=== PATIENT | male | born 1940 | race Caucasian/White ===

== ENCOUNTER 2022-04-09 19:26 | Inpatient (IN) ==
[2022-04-09] MEDS ORDERED: MUPIROCIN 2% OINT 22 GM TUBE TOP ONE (19:46)
[2022-04-09 20:30] LABS: Albumin 3.3 G/DL (3.4-5.0); Bilirubin,Total 0.4 MG/DL (0.20-1.00); Calcium 8.6 MG/DL (8.5-10.1); Osmolality,Calculated 285.3 MOS/KG (273-304); Potassium 4.4 MMOL/L (3.5-5.1); Total Protein 6.5 G/DL (6.4-8.2)
[2022-04-09 20:44] LABS: Basophils # 0.1 10*3/uL (0.0-0.2); Basophils % 0.6 % (0.0-0.8); Eosinophils # 0.4 10*3/uL (0.0-0.87); Eosinophils % 5.7 % (0.00-10.9); Hematocrit 30.4 VOL% (42.0-52.0); Hemoglobin 9.5 GM/DL (14.0-18.0); Immature Granulocytes % 0.3 %; Immature Granulocytes Absolute 0.02 #; Lymphocytes # 1.6 10*3/uL (1.4-4.0); Mean Corpuscular HGB Conc 31.3 GM/DL (32-36); Mean Corpuscular Volume 98.1 FL (87-102); Mean Platelet Volume 11.8 FL (9.6-12.0); Monocytes # 0.4 10*3/uL (0.11-0.8); Monocytes % 5.3 % (1.7-12.7); Neutrophils % 68.1 % (38.7-73.9); Platelet Count 169 T/CUMM (130-400); Red Cell Distribution Width 13.6 % (9.3-17.3); White Blood Count 7.8 T/CUMM (4-12)
[2022-04-09 20:50] LABS: INR 1.1; PT Patient Result 11.9 SECS (10.1-12.1)
[2022-04-09] MEDS ORDERED: CLINDAMYCIN INJ 900 MG/50 ML PREMIX IV ONE (20:52)
[2022-04-09] MEDS ORDERED: fentaNYL 100 MCG/2 ML VIAL ONE (20:53)
[2022-04-09] MEDS ORDERED: ONDANSETRON 4 MG/2 ML VIAL ONE (20:53)
[2022-04-09] MEDS ORDERED: SEVOFLURANE 1 UNIT/15 MINUTE INH ONE ×2 (20:53→21:56)
[2022-04-09] MEDS ORDERED: LIDOCAINE 2% 5 ML VIAL ONE (20:53)
[2022-04-09] MEDS ORDERED: ETOMIDATE 40 MG/20 ML VIAL IV ONE (20:53)
[2022-04-09] MEDS ORDERED: diphenhydrAMINE CAP 25 MG CAPSULE PO PRN (20:56)
[2022-04-09] MEDS ORDERED: ACETAMINOPHEN 325 MG TABLET PO PRN (20:56)
[2022-04-09] MEDS ORDERED: ONDANSETRON 4 MG/2 ML VIAL IV PRN (20:56)
[2022-04-09] MEDS ORDERED: MAGNESIUM HYDROXIDE SUSP 30 ML UDCUP PO PRN ×2 (20:56→21:06)
[2022-04-09] MEDS ORDERED: LACTATED RINGERS 1,000 ML IV SCH (21:00)
[2022-04-09] MEDS ORDERED: MORPHINE 2 MG/1 ML SYRINGE IV PRN (21:08)
[2022-04-09] MEDS ORDERED: GLUCAGON 1 MG VIAL IM PRN (21:36)
[2022-04-09] MEDS ORDERED: ALUMINUM/MAGNES/SIMETH MAX STR 30 ML UDCUP PO PRN (21:36)
[2022-04-09] MEDS ORDERED: ROCURONIUM 50 MG/5 ML VIAL IV ONE (21:40)
[2022-04-09] MEDS ORDERED: PHENYLEPHRINE 1 MG/10 ML SYRINGE IV ONE ×2 (21:40→21:50)
[2022-04-09] MEDS ORDERED: GLYCOPYRROLATE 0.4 MG/2 ML VIAL ONE ×2 (21:40→21:55)
[2022-04-09] MEDS ORDERED: CALCIUM CHLORIDE 1,000 MG/10 ML VIAL IV ONE (21:52)
[2022-04-09] MEDS ORDERED: DEXTROSE 10% 250 ML BAG IV PRN (21:54)
[2022-04-09] MEDS: MORPHINE 2 MG/1 ML SYRINGE IV PRN (23:40)
[2022-04-10] MEDS: GENTAMICIN INJ 80 MG/50 ML PREMIX IV SCH ×2 (02:19→09:02)
[2022-04-10 04:53] LABS: Basophils % 0.6 % (0.0-0.8); Eosinophils # 0.2 10*3/uL (0.0-0.87); Eosinophils % 3.6 % (0.00-10.9); Hematocrit 26.7 VOL% (42.0-52.0); Hemoglobin 8.3 GM/DL (14.0-18.0); Immature Granulocytes % 0.5 %; Immature Granulocytes Absolute 0.03 #; Lymphocytes % 15.9 % (21.2-54.2); Mean Corpuscular HGB Conc 31.1 GM/DL (32-36); Mean Corpuscular Volume 97.4 FL (87-102); Mean Platelet Volume 11.2 FL (9.6-12.0); Monocytes # 0.5 10*3/uL (0.11-0.8); Monocytes % 7.4 % (1.7-12.7); Platelet Count 147 T/CUMM (130-400); Red Blood Count 2.74 MC/CUMM (3.8-5.5); Red Cell Distribution Width 13.2 % (9.3-17.3); White Blood Count 6.4 T/CUMM (4-12)
[2022-04-10 05:09] LABS: Osmolality,Calculated 285.3 MOS/KG (273-304); Potassium 3.7 MMOL/L (3.5-5.1)
[2022-04-10] MEDS: CLINDAMYCIN INJ 900 MG/50 ML PREMIX IV SCH ×3 (05:38→21:54)
[2022-04-10] MEDS: DOCUSATE SODIUM 100 MG CAPSULE PO SCH ×2 (08:58→21:51)
[2022-04-10] MEDS: PANTOPRAZOLE 40 MG TABLET PO SCH (08:58)
[2022-04-10] MEDS: carvediloL 25 MG TABLET PO SCH ×2 (08:58→16:30)
[2022-04-10] MEDS ORDERED: TAMSULOSIN 0.4 MG CAPSULE PO SCH (09:00)
[2022-04-10] MEDS ORDERED: NICOTINE 14 MG/24 HR PATCH TRANSDERM PRN (11:28)
[2022-04-10 11:50] LABS: Hematocrit 27.1 VOL% (42.0-52.0); Hemoglobin 8.6 GM/DL (14.0-18.0)
[2022-04-10] MEDS: LACTATED RINGERS 1,000 ML IV SCH (15:31)
[2022-04-10] MEDS ORDERED: GENTAMICIN INJ 480 MG in SODIUM CHLORIDE 0.9% 100 ML IV SCH (21:00)
[2022-04-10] MEDS: ATORVASTATIN 10 MG TABLET PO SCH (21:51)
[2022-04-10] MEDS: TAMSULOSIN 0.4 MG CAPSULE PO SCH (21:51)
[2022-04-11 04:58] LABS: Basophils % 0.4 % (0.0-0.8); Eosinophils # 0.1 10*3/uL (0.0-0.87); Eosinophils % 1.9 % (0.00-10.9); Hematocrit 22.5 VOL% (42.0-52.0); Hemoglobin 7.4 GM/DL (14.0-18.0); Immature Granulocytes % 0.4 %; Immature Granulocytes Absolute 0.03 #; Lymphocytes # 1.3 10*3/uL (1.4-4.0); Lymphocytes % 18.7 % (21.2-54.2); Mean Corpuscular HGB Conc 32.9 GM/DL (32-36); Mean Corpuscular Volume 96.2 FL (87-102); Mean Platelet Volume 11.6 FL (9.6-12.0); Monocytes # 0.7 10*3/uL (0.11-0.8); Monocytes % 10.6 % (1.7-12.7); Platelet Count 136 T/CUMM (130-400); Red Blood Count 2.34 MC/CUMM (3.8-5.5); Red Cell Distribution Width 13.5 % (9.3-17.3); White Blood Count 6.9 T/CUMM (4-12)
[2022-04-11 05:06] LABS: Calcium 8.6 MG/DL (8.5-10.1); Osmolality,Calculated 283.5 MOS/KG (273-304); Potassium 3.7 MMOL/L (3.5-5.1)
[2022-04-11] MEDS: CLINDAMYCIN INJ 900 MG/50 ML PREMIX IV SCH ×3 (05:33→23:23)
[2022-04-11] MEDS: DOCUSATE SODIUM 100 MG CAPSULE PO SCH ×2 (08:34→20:25)
[2022-04-11] MEDS: PANTOPRAZOLE 40 MG TABLET PO SCH (08:34)
[2022-04-11] MEDS: FLUoxetine 20 MG CAPSULE PO SCH (08:34)
[2022-04-11] MEDS: TAMSULOSIN 0.4 MG CAPSULE PO SCH ×2 (08:34→20:25)
[2022-04-11] MEDS: carvediloL 25 MG TABLET PO SCH ×2 (08:34→16:08)
[2022-04-11] MEDS: LACTATED RINGERS 1,000 ML IV SCH ×3 (11:10→23:24)
[2022-04-11 13:55] LABS: Hematocrit 23.5 VOL% (42.0-52.0); Hemoglobin 7.7 GM/DL (14.0-18.0)
[2022-04-11] MEDS: ATORVASTATIN 10 MG TABLET PO SCH (20:25)
[2022-04-12 05:42] LABS: Basophils % 0.2 % (0.0-0.8); Eosinophils # 0.1 10*3/uL (0.0-0.87); Eosinophils % 1.7 % (0.00-10.9); Hematocrit 20.3 VOL% (42.0-52.0); Hemoglobin 6.6 GM/DL (14.0-18.0); Immature Granulocytes % 0.5 %; Immature Granulocytes Absolute 0.03 #; Lymphocytes # 0.9 10*3/uL (1.4-4.0); Lymphocytes % 13.4 % (21.2-54.2); Mean Corpuscular HGB Conc 32.5 GM/DL (32-36); Mean Corpuscular Volume 95.8 FL (87-102); Mean Platelet Volume 11.7 FL (9.6-12.0); Monocytes # 0.6 10*3/uL (0.11-0.8); Monocytes % 9.6 % (1.7-12.7); Neutrophils % 74.6 % (38.7-73.9); Platelet Count 120 T/CUMM (130-400); Red Blood Count 2.12 MC/CUMM (3.8-5.5); Red Cell Distribution Width 13.2 % (9.3-17.3); White Blood Count 6.4 T/CUMM (4-12)
[2022-04-12 05:55] LABS: Osmolality,Calculated 283.5 MOS/KG (273-304); Potassium 3.8 MMOL/L (3.5-5.1)
[2022-04-12] MEDS: CLINDAMYCIN INJ 900 MG/50 ML PREMIX IV SCH ×3 (06:02→21:02)
[2022-04-12] MEDS ORDERED: SODIUM CHLORIDE 0.9% 1,000 ML IV PRN ×2 (06:49→09:25)
[2022-04-12] MEDS ORDERED: LACTATED RINGERS 1,000 ML IV SCH (07:00)
[2022-04-12] MEDS ORDERED: MORPHINE 10 MG/1 ML VIAL ONE (09:04)
[2022-04-12] MEDS ORDERED: ONDANSETRON 4 MG/2 ML VIAL IV PRN (09:06)
[2022-04-12] MEDS ORDERED: MORPHINE 10 MG/1 ML VIAL IV PRN (09:06)
[2022-04-12] MEDS: carvediloL 25 MG TABLET PO SCH ×2 (11:14→16:14)
[2022-04-12] MEDS: DOCUSATE SODIUM 100 MG CAPSULE PO SCH ×2 (11:15→21:02)
[2022-04-12] MEDS: FLUoxetine 20 MG CAPSULE PO SCH (11:15)
[2022-04-12] MEDS: PANTOPRAZOLE 40 MG TABLET PO SCH (11:15)
[2022-04-12] MEDS: TAMSULOSIN 0.4 MG CAPSULE PO SCH ×2 (11:15→21:02)
[2022-04-12 13:17] LABS: Hematocrit 25.5 VOL% (42.0-52.0); Hemoglobin 8.4 GM/DL (14.0-18.0)
[2022-04-12 17:29] LABS: Hematocrit 25.3 VOL% (42.0-52.0); Hemoglobin 8.6 GM/DL (14.0-18.0)
[2022-04-12] MEDS: MORPHINE 2 MG/1 ML SYRINGE IV PRN (18:02)
[2022-04-12] MEDS: rOPINIRole 1 MG TABLET PO SCH (21:02)
[2022-04-12] MEDS: ATORVASTATIN 10 MG TABLET PO SCH (21:02)
[2022-04-13] MEDS: CLINDAMYCIN INJ 900 MG/50 ML PREMIX IV SCH ×3 (05:09→21:15)
[2022-04-13 05:55] LABS: Basophils % 0.4 % (0.0-0.8); Eosinophils # 0.3 10*3/uL (0.0-0.87); Eosinophils % 4.6 % (0.00-10.9); Hematocrit 26.3 VOL% (42.0-52.0); Hemoglobin 8.5 GM/DL (14.0-18.0); Immature Granulocytes % 0.4 %; Immature Granulocytes Absolute 0.02 #; Lymphocytes % 16.7 % (21.2-54.2); Mean Corpuscular HGB Conc 32.3 GM/DL (32-36); Mean Corpuscular Volume 93.9 FL (87-102); Mean Platelet Volume 12.2 FL (9.6-12.0); Monocytes # 0.5 10*3/uL (0.11-0.8); Monocytes % 9.2 % (1.7-12.7); Neutrophils % 68.7 % (38.7-73.9); Platelet Count 138 T/CUMM (130-400); Red Cell Distribution Width 14.9 % (9.3-17.3); White Blood Count 5.7 T/CUMM (4-12)
[2022-04-13] MEDS: LACTATED RINGERS 1,000 ML IV SCH (08:06)
[2022-04-13] MEDS: FLUoxetine 20 MG CAPSULE PO SCH (09:43)
[2022-04-13] MEDS: PANTOPRAZOLE 40 MG TABLET PO SCH (09:43)
[2022-04-13] MEDS: carvediloL 25 MG TABLET PO SCH ×2 (09:43→16:18)
[2022-04-13] MEDS: TAMSULOSIN 0.4 MG CAPSULE PO SCH ×2 (09:43→21:14)
[2022-04-13] MEDS: DOCUSATE SODIUM 100 MG CAPSULE PO SCH ×2 (09:43→21:14)
[2022-04-13] MEDS: MORPHINE 2 MG/1 ML SYRINGE IV PRN ×2 (11:06→19:38)
[2022-04-13] MEDS: rOPINIRole 1 MG TABLET PO SCH (21:13)
[2022-04-13] MEDS: ATORVASTATIN 10 MG TABLET PO SCH (21:14)
[2022-04-14] MEDS: MORPHINE 2 MG/1 ML SYRINGE IV PRN ×2 (00:54→13:29)
[2022-04-14] MEDS: CLINDAMYCIN INJ 900 MG/50 ML PREMIX IV SCH ×3 (05:06→21:31)
[2022-04-14 05:49] LABS: Basophils % 0.5 % (0.0-0.8); Eosinophils # 0.3 10*3/uL (0.0-0.87); Eosinophils % 4.4 % (0.00-10.9); Hematocrit 26.4 VOL% (42.0-52.0); Hemoglobin 8.6 GM/DL (14.0-18.0); Immature Granulocytes % 0.3 %; Immature Granulocytes Absolute 0.02 #; Lymphocytes # 0.8 10*3/uL (1.4-4.0); Lymphocytes % 13.3 % (21.2-54.2); Mean Corpuscular HGB Conc 32.6 GM/DL (32-36); Mean Corpuscular Volume 93.6 FL (87-102); Mean Platelet Volume 11.4 FL (9.6-12.0); Monocytes # 0.6 10*3/uL (0.11-0.8); Neutrophils % 71.5 % (38.7-73.9); Platelet Count 160 T/CUMM (130-400); Red Blood Count 2.82 MC/CUMM (3.8-5.5); Red Cell Distribution Width 14.2 % (9.3-17.3); White Blood Count 6.3 T/CUMM (4-12)
[2022-04-14 05:56] LABS: Calcium 8.2 MG/DL (8.5-10.1); Potassium 3.9 MMOL/L (3.5-5.1)
[2022-04-14] MEDS: FLUoxetine 20 MG CAPSULE PO SCH (10:10)
[2022-04-14] MEDS: carvediloL 25 MG TABLET PO SCH ×2 (10:10→16:58)
[2022-04-14] MEDS: PANTOPRAZOLE 40 MG TABLET PO SCH (10:10)
[2022-04-14] MEDS: TAMSULOSIN 0.4 MG CAPSULE PO SCH ×2 (10:10→21:30)
[2022-04-14] MEDS: DOCUSATE SODIUM 100 MG CAPSULE PO SCH ×2 (10:10→21:30)
[2022-04-14] MEDS: ATORVASTATIN 10 MG TABLET PO SCH (21:30)
[2022-04-14] MEDS: rOPINIRole 1 MG TABLET PO SCH (21:30)
[2022-04-15 05:07] LABS: Basophils % 0.4 % (0.0-0.8); Eosinophils # 0.1 10*3/uL (0.0-0.87); Eosinophils % 1.2 % (0.00-10.9); Hematocrit 25.2 VOL% (42.0-52.0); Hemoglobin 8.4 GM/DL (14.0-18.0); Immature Granulocytes % 0.7 %; Immature Granulocytes Absolute 0.06 #; Lymphocytes # 0.8 10*3/uL (1.4-4.0); Lymphocytes % 10.1 % (21.2-54.2); Mean Corpuscular HGB Conc 33.3 GM/DL (32-36); Mean Corpuscular Volume 91.6 FL (87-102); Mean Platelet Volume 11.9 FL (9.6-12.0); Monocytes # 0.8 10*3/uL (0.11-0.8); Monocytes % 9.8 % (1.7-12.7); Neutrophils % 77.8 % (38.7-73.9); Platelet Count 178 T/CUMM (130-400); Red Blood Count 2.75 MC/CUMM (3.8-5.5); Red Cell Distribution Width 14.3 % (9.3-17.3); White Blood Count 8.2 T/CUMM (4-12)
[2022-04-15] MEDS: CLINDAMYCIN INJ 900 MG/50 ML PREMIX IV SCH (05:07)
[2022-04-15 05:27] LABS: Calcium 8.1 MG/DL (8.5-10.1); Osmolality,Calculated 272.2 MOS/KG (273-304); Potassium 3.7 MMOL/L (3.5-5.1)
[2022-04-15] MEDS: TAMSULOSIN 0.4 MG CAPSULE PO SCH ×2 (09:42→20:53)
[2022-04-15] MEDS: PANTOPRAZOLE 40 MG TABLET PO SCH (09:42)
[2022-04-15] MEDS: carvediloL 25 MG TABLET PO SCH ×2 (09:42→17:15)
[2022-04-15] MEDS: FLUoxetine 20 MG CAPSULE PO SCH (09:42)
[2022-04-15] MEDS: DOCUSATE SODIUM 100 MG CAPSULE PO SCH ×2 (09:42→20:53)
[2022-04-15] MEDS ORDERED: PHENOL 1.4% THROAT SPRAY 177 ML BOTTLE PO PRN (12:41)
[2022-04-15] MEDS: MORPHINE 2 MG/1 ML SYRINGE IV PRN (14:43)
[2022-04-15] MEDS: ATORVASTATIN 10 MG TABLET PO SCH (20:53)
[2022-04-15] MEDS: rOPINIRole 1 MG TABLET PO SCH (20:53)
[2022-04-16] MEDS: MORPHINE 2 MG/1 ML SYRINGE IV PRN ×2 (01:00→10:33)
[2022-04-16 05:09] LABS: Basophils % 0.4 % (0.0-0.8); Eosinophils # 0.2 10*3/uL (0.0-0.87); Eosinophils % 2.2 % (0.00-10.9); Hemoglobin 8.3 GM/DL (14.0-18.0); Immature Granulocytes % 0.4 %; Immature Granulocytes Absolute 0.04 #; Lymphocytes % 10.7 % (21.2-54.2); Mean Corpuscular HGB Conc 33.2 GM/DL (32-36); Mean Corpuscular Volume 93.6 FL (87-102); Mean Platelet Volume 11.4 FL (9.6-12.0); Monocytes # 0.8 10*3/uL (0.11-0.8); Monocytes % 8.8 % (1.7-12.7); Neutrophils % 77.5 % (38.7-73.9); Platelet Count 197 T/CUMM (130-400); Red Blood Count 2.67 MC/CUMM (3.8-5.5); Red Cell Distribution Width 14.1 % (9.3-17.3); White Blood Count 9.2 T/CUMM (4-12)
[2022-04-16 05:32] LABS: Calcium 7.9 MG/DL (8.5-10.1); Osmolality,Calculated 265.5 MOS/KG (273-304); Potassium 3.6 MMOL/L (3.5-5.1)
[2022-04-16] MEDS: TAMSULOSIN 0.4 MG CAPSULE PO SCH ×2 (08:33→21:08)
[2022-04-16] MEDS: FLUoxetine 20 MG CAPSULE PO SCH (08:33)
[2022-04-16] MEDS: DOCUSATE SODIUM 100 MG CAPSULE PO SCH ×2 (08:33→21:08)
[2022-04-16] MEDS: carvediloL 25 MG TABLET PO SCH ×2 (08:33→17:16)
[2022-04-16] MEDS: PANTOPRAZOLE 40 MG TABLET PO SCH (08:33)
[2022-04-16] MEDS ORDERED: HYDROmorphone 1 MG/1 ML SYRINGE IV PRN (12:46)
[2022-04-16] MEDS: GABAPENTIN 100 MG CAPSULE PO SCH ×2 (14:45→21:08)
[2022-04-16] MEDS: ATORVASTATIN 10 MG TABLET PO SCH (21:08)
[2022-04-16] MEDS: rOPINIRole 1 MG TABLET PO SCH (21:19)
[2022-04-17 05:55] LABS: Basophils % 0.5 % (0.0-0.8); Eosinophils # 0.2 10*3/uL (0.0-0.87); Hematocrit 25.2 VOL% (42.0-52.0); Hemoglobin 8.4 GM/DL (14.0-18.0); Immature Granulocytes % 0.6 %; Immature Granulocytes Absolute 0.05 #; Lymphocytes # 0.9 10*3/uL (1.4-4.0); Lymphocytes % 10.8 % (21.2-54.2); Mean Corpuscular HGB Conc 33.3 GM/DL (32-36); Mean Corpuscular Volume 92.3 FL (87-102); Mean Platelet Volume 10.8 FL (9.6-12.0); Monocytes # 0.7 10*3/uL (0.11-0.8); Monocytes % 8.8 % (1.7-12.7); Neutrophils % 76.3 % (38.7-73.9); Platelet Count 210 T/CUMM (130-400); Red Blood Count 2.73 MC/CUMM (3.8-5.5); White Blood Count 7.9 T/CUMM (4-12)
[2022-04-17 06:19] LABS: Calcium 7.9 MG/DL (8.5-10.1); Osmolality,Calculated 270.2 MOS/KG (273-304); Potassium 3.6 MMOL/L (3.5-5.1)
[2022-04-17] MEDS: carvediloL 25 MG TABLET PO SCH ×2 (09:12→17:03)
[2022-04-17] MEDS: FLUoxetine 20 MG CAPSULE PO SCH (09:19)
[2022-04-17] MEDS: TAMSULOSIN 0.4 MG CAPSULE PO SCH ×2 (09:19→20:52)
[2022-04-17] MEDS: DOCUSATE SODIUM 100 MG CAPSULE PO SCH ×2 (09:19→20:53)
[2022-04-17] MEDS: PANTOPRAZOLE 40 MG TABLET PO SCH (09:19)
[2022-04-17] MEDS: GABAPENTIN 100 MG CAPSULE PO SCH ×2 (09:19→20:52)
[2022-04-17] MEDS: rOPINIRole 1 MG TABLET PO SCH (20:52)
[2022-04-17] MEDS: ATORVASTATIN 10 MG TABLET PO SCH (20:53)
[2022-04-18] MEDS: GABAPENTIN 100 MG CAPSULE PO SCH ×2 (08:55→20:40)
[2022-04-18] MEDS: carvediloL 25 MG TABLET PO SCH ×2 (08:55→17:22)
[2022-04-18] MEDS: DOCUSATE SODIUM 100 MG CAPSULE PO SCH ×2 (08:55→20:39)
[2022-04-18] MEDS: TAMSULOSIN 0.4 MG CAPSULE PO SCH ×2 (08:55→20:39)
[2022-04-18] MEDS: PANTOPRAZOLE 40 MG TABLET PO SCH (08:56)
[2022-04-18] MEDS: FLUoxetine 20 MG CAPSULE PO SCH (08:56)
[2022-04-18] MEDS: rOPINIRole 1 MG TABLET PO SCH (20:39)
[2022-04-18] MEDS: ATORVASTATIN 10 MG TABLET PO SCH (20:40)
[2022-04-19] MEDS: DOCUSATE SODIUM 100 MG CAPSULE PO SCH (08:45)
[2022-04-19] MEDS: FLUoxetine 20 MG CAPSULE PO SCH (08:45)
[2022-04-19] MEDS: PANTOPRAZOLE 40 MG TABLET PO SCH (08:45)
[2022-04-19] MEDS: GABAPENTIN 100 MG CAPSULE PO SCH (08:46)
[2022-04-19] MEDS: carvediloL 25 MG TABLET PO SCH (08:46)
[2022-04-19] MEDS: TAMSULOSIN 0.4 MG CAPSULE PO SCH (08:46)
[2022-04-19 11:17] VITALS: BP 125/56
== END 2022-04-19 13:44 | disposition swing bed (61) | DRG 504 ==
LOC: N.ED 19:26 → SUATTDRO 20:56 → N.EDINP 20:56 → N.3E 23:08
PROVIDERS: ADMIT Internal Medicine; ATTEND Internal Medicine